=== PATIENT | male | born 1990 | race Caucasian/White ===

== ENCOUNTER 2018-06-12 20:56 | Emergency (ER) | payer OTHER, SELFPAY ==
[2018-06-12 21:00] VITALS: BP 138/96; PULSE 68; RESP 18; TEMP 37.3; O2SAT 98; BMI 24.3
--- NOTE | 2018-06-12 21:07 | PC.NURSE ---
reports really painful right ear, stated he was on floor crying in pain prior to visit. Then the pain just stopped and blood came out and he came into er. denies n/v/d fever, chills, changes in balance, changes in vision. reports decreased hearing in both ears and states way worse on right side.
--- NOTE | 2018-06-13 03:09 | ED.EAR ---
HPI - Ear Problem General Chief complaint: Ear Stated complaint: thinks he ruptured his right ear drum Time Seen by Provider: 06/12/18 21:00 Source: patient Mode of arrival: ambulatory Limitations: no limitations History of Present Illness HPI Narrative: 28-year-old male nonsmoker with history of GERD presents with chief complaint of right ear pain, bloody drainage, and decreased ability to hear over the past day. He states that he had typical upper respiratory infection symptoms such as runny nose, nasal congestion, sore throat and cough for the past [place]. He initially had significant right ear pain but this morning felt drainage and a subsequent improvement in his symptoms. He has had no fever or chills. he denies any injury MD Complaint: ear pain, ear discharge and decreased hearing Location: right ear Duration: constant Severity: mild Relieving factors: nothing Exacerbating factors: nothing Context: recent illness Discharge from ear: yes - bloody Associated symptoms ear: decreased hearing Related Data Previous Rx's Medication Instructions Recorded esomeprazole magnesium [Nexium] 40 mg PO QDAY #14 cap 02/11/17 tramadol 0 tab PO Q6HP PRN #20 tab 02/16/17 ondansetron HCl [Zofran] 4 mg PO Q4HP PRN #20 tab 02/24/17 diazepam [Valium] 5 mg PO Q8HP PRN #10 tab 03/24/17 tramadol 1 - 2 mg PO Q6HP PRN #12 tab 03/24/17 Allergies Allergy/AdvReac Type Severity Reaction Status Date / Time No Known Allergies Allergy Uncoded 05/20/17 12:50 Review of Systems Constitutional Denies chills, Denies fever(s), Denies lethargy and Denies weakness Eyes Denies change in vision, Denies eye discharge, Denies irritation and Denies loss of vision ENT Ears, Nose, Mouth, and Throat: Denies change in voice, Reports ear discharge, Reports otalgia, Reports nasal congestion, Reports nasal discharge, Denies neck pain and Denies sore throat Cardiovascular Denies chest pain, Denies irregular heart rhythm, Denies lightheadedness, Denies palpitations, Denies dyspnea, Denies dyspnea on exertion and Denies orthopnea Respiratory Denies cough, Denies dyspnea, Denies dyspnea on exertion and Denies wheezing Gastrointestinal Gastrointestinal: Denies abdominal pain, Denies change in bowel habits, Denies diarrhea, Denies nausea and Denies vomiting Genitourinary Denies hematuria, Denies flank pain, Denies urinary incontinence and Denies urinary urgency Musculoskeletal Denies neck pain Integumentary/Breasts Denies pruritus, Denies erythema, Denies rash and Denies wounds Neurologic Denies confusion, Denies loss of vision and Denies weakness Psychiatric Denies anxiety, Denies confusion, Denies depression, Denies homicidal ideation and Denies suicidal ideation Endocrine Denies palpitations Hematologic/Lymphatic Denies easy bruising Allergic/Immunologic Denies wheezing Exam Narrative Exam Narrative: GEN: AOx3 and in mild distress EYES: Pupils are equal, round, and reactive to light and accommodation. Extraoccular muscles are intact bilaterally. There is no subconjunctival hemorrhage or exudate. EARS: Left tympanic membrane appears normal. Normal cone of light, clear membrane with visualization of bony landmarks. Right tympanic membrane is easily visualized with a clear canal contains minimal bloody drainage. TM is bloody, no obvious defect noted. When patient plugs nose and blows you can hear air escaping his right tympanic membrane, suggesting a tympanic membrane rupture CHEST: Lungs are clear to auscultation bilaterally and free of wheezes, rales, or rhonchi. Heart rate is regular rhythm, there are no murmurs, clicks, rubs, or gallops. There is no chest wall tenderness. ABD: Abdomen is soft and nontender. There is no guarding or rebound. Bowel sounds are normal in all 4 quadrants. There is no mass or organomegaly. EXT: Full painless ROM of all extremities with no loss of sensation or strength. SKIN: Warm, pink, and dry. No erythema or rash Initial Vital Signs Initial Vital Signs: Vital Signs Temperature 99.2 F 06/12/18 21:00 Pulse Rate 68 06/12/18 21:00 Respiratory Rate 18 06/12/18 21:00 Blood Pressure 138/96 H 06/12/18 21:00 Pulse Oximetry 98 06/12/18 21:00 Course Vital Signs - 8 hr 06/12/18 21:00 Temperature 99.2 F Pulse Rate 68 Respiratory Rate 18 Blood Pressure 138/96 H Pulse Oximetry 98 Discharge Plan Departure Patient Disposition: Home Clinical Impression: Otitis media Qualifiers: Otitis media type: suppurative Chronicity: acute Laterality: right Recurrence: not specified as recurrent Spontaneous tympanic membrane rupture: with spontaneous rupture Qualified Code(s): H66.011 - Acute suppurative otitis media with spontaneous rupture of ear drum, right ear Discharge Date/Time: 06/12/18 21:21 Interventions: ED Discharge Assessment Last Done: 06/12/18 21:20 Instructions: Ruptured Eardrum Activity Restrictions/Additional Instructions: *You have been diagnosed with [ Right otitis media with tympanic membrane rupture ] *What to do: *Take medications as directed *Follow up with your primary care provider in 2-3 days, call for an appointment. Let them know you were seen in the Emergency Department and that we ask that you be seen in follow up *Return to ER if you should have any new, worsening or concerning symptoms Prescriptions: No Action esomeprazole magnesium [Nexium] 40 MG capsule,delayed release(DR/EC) 40 mg PO QDAY Qty: 14 RF: 0 tramadol 50 MG tablet PO Q6HP PRNQty: 20 RF: 0 ondansetron HCl [Zofran] 4 MG tablet 4 mg PO Q4HP PRNQty: 20 RF: 0 tramadol 50 MG tablet 1 - 2 mg PO Q6HP PRNQty: 12 RF: 0 diazepam [Valium] 5 MG tablet 5 mg PO Q8HP PRNQty: 10 RF: 0 Referrals: Manjit Huntley MD [Physician] -
== END 2018-06-12 21:21 | disposition home or self-care (01) ==
PROVIDERS: Emergency Provider Emergency Medicine
DX: H66.011 Acute suppurative otitis media with spontaneous rupture of ear drum, right ear (principal); H66.91 Otitis media, unspecified, right ear
CPT/HCPCS: 99282

== ENCOUNTER 2019-04-18 20:57 | Emergency (ER) | payer OTHER, SELFPAY ==
[2019-04-18 21:10] VITALS: BP 107/74; PULSE 86; RESP 14; TEMP 36.6; O2SAT 99
--- NOTE | 2019-04-18 23:32 | ED.BACK ---
HPI - Back Pain/Injury General Chief Complaint: Back Pain/Injury Stated Complaint: Back Pain Time Seen by Provider: 04/18/19 23:32 Source: patient Related Data Previous Rx's Medication Instructions Recorded esomeprazole magnesium [Nexium] 40 mg PO QDAY #14 cap 02/11/17 tramadol 0 tab PO Q6HP PRN #20 tab 02/16/17 ondansetron HCl [Zofran] 4 mg PO Q4HP PRN #20 tab 02/24/17 diazepam [Valium] 5 mg PO Q8HP PRN #10 tab 03/24/17 tramadol 1 - 2 mg PO Q6HP PRN #12 tab 03/24/17 Allergies Allergy/AdvReac Type Severity Reaction Status Date / Time NSAIDS (Non-Steroidal AdvReac Verified 04/18/19 21:13 Anti-Inflamma No Known Allergies Allergy Uncoded 05/20/17 12:50 Exam Initial Vital Signs Initial Vital Signs: Vital Signs Temperature 97.8 F 04/18/19 21:10 Pulse Rate 86 04/18/19 21:10 Respiratory Rate 14 04/18/19 21:10 Blood Pressure 107/74 04/18/19 21:10 Pulse Oximetry 99 04/18/19 21:10 Course Vital Signs Vital signs: Vital Signs - 8 hr 04/18/19 21:10 Temperature 97.8 F Pulse Rate 86 Respiratory Rate 14 Blood Pressure 107/74 Pulse Oximetry 99 Discharge Plan Departure Patient Disposition: Left Without Being Seen Clinical Impression: Patient left without being seen Discharge Date/Time: 04/19/19 00:13
== END 2019-04-19 00:13 | disposition left against medical advice (07) ==
PROVIDERS: Emergency Provider Emergency Medicine
CPT/HCPCS: 99281